=== PATIENT | female | born 2000 | race Two or more races ===

== ENCOUNTER 2022-03-21 12:50 | Emergency (ER) | payer OTHER ==
[2022-03-21 13:10] VITALS: BP 154/85; PULSE 64; RESP 17; TEMP 97.9; BMI 61.5
[2022-03-21] MEDS ORDERED: ACETAMINOPHEN 1000 MG/100 ML BAG IVPB ONE (13:26)
[2022-03-21] MEDS ORDERED: ONDANSETRON 4 MG/2 ML VIAL IVPUSH ONE (13:26)
[2022-03-21] MEDS ORDERED: SODIUM CHLORIDE 1,000 ML IV STA (13:26)
[2022-03-21 13:47] LABS: PH,URINE 5.5 (5.0-8.0); URINE APPEARANCE CLEAR; URINE BILIRUBIN NEGATIVE (NEGATIVE); URINE COLOR YELLOW; URINE GLUCOSE (UA) NEGATIVE (NEGATIVE); URINE KETONE 1+ (NEGATIVE); URINE LEUK ESTERASE NEGATIVE (NEGATIVE); URINE NITRITE NEGATIVE (NEGATIVE); URINE PROTEIN NEGATIVE (NEGATIVE); URINE UROBILINOGEN 0.2 mg/dL (0.2-1.0)
[2022-03-21 13:48] LABS: HCG,QUALITATIVE URINE Positive
[2022-03-21] MEDS ORDERED: ACETAMINOPHEN INJECTION 100 ML IVPB ONE (14:33)
[2022-03-21] MEDS ORDERED: ONDANSETRON 4 MG/2 ML VIAL ONE (14:33)
[2022-03-21 14:36] LABS: BASO % 0.4 % (0-2.0); EOS % 1.8 % (0-4.5); HEMATOCRIT 38.2 % (32.4-45.2); HEMOGLOBIN 12.6 GM/dL (10.7-15.3); LYMPH % 27.8 % (8-40); MCH 28.6 pg (25.7-33.7); MCHC 32.9 g/dl (32.0-36.0); MEAN PLT VOLUME 7.6 fl (7.5-11.1); MONO % 10.3 % (3.8-10.2); NEUT % 59.7 % (42.8-82.8); PLATELET COUNT 363 10^3/uL (134-434); RDW 13.6 % (11.6-15.6); WHITE BLOOD COUNT 8.2 K/mm3 (4.0-10.0)
[2022-03-21 14:54] LABS: CALCIUM 9.3 mg/dL (8.5-10.1)
[2022-03-21 14:55] LABS: BLOOD UREA NITROGEN 6.1 mg/dL (7-18)
[2022-03-21 14:58] LABS: CREATININE 0.5 mg/dL (0.55-1.3)
== END 2022-03-21 17:11 | disposition home or self-care (01) ==
LOC: EDBD 12:50 → JER 12:50
PROC: 3E0333Z Introduction of Anti-inflammatory into Peripheral Vein, Percutaneous Approach (ICD-10-PCS; principal; 2022-03-21)
PROC: 3E0337Z Introduction of Electrolytic and Water Balance Substance into Peripheral Vein, Percutaneous Approach (ICD-10-PCS; 2022-03-21)
DX: O26.891 Other specified pregnancy related conditions, first trimester (principal); R10.9 Unspecified abdominal pain; Z3A.01 Less than 8 weeks gestation of pregnancy
CPT/HCPCS: 0241U-QW; 36415; 76817-TC; 80048; 81003; 84702; 84703; 85025; 86850; 86900; 86901; 87086; 99284-25

== ENCOUNTER 2022-08-05 03:25 | Emergency (ER) | payer OTHER ==
[2022-08-05 03:36] VITALS: BMI 66.5
[2022-08-05] MEDS ORDERED: ACETAMINOPHEN 500 MG TABLET (FP) PO ONE (05:54)
[2022-08-05] MEDS ORDERED: ACETAMINOPHEN 325 MG TABLET (FP) ONE (05:58)
[2022-08-05 07:25] VITALS: BP 131/64; PULSE 82; RESP 21; TEMP 98.4
== END 2022-08-05 08:10 | disposition home or self-care (01) ==
LOC: JER 03:25
DX: O26.892 Other specified pregnancy related conditions, second trimester (principal); H92.01 Otalgia, right ear; R09.81 Nasal congestion; Z3A.27 27 weeks gestation of pregnancy
CPT/HCPCS: 99283-25